=== PATIENT | female | born 1975 | race American Indian/Alaskan Native ===

== ENCOUNTER 2016-10-16 05:08 | Emergency (ER) | payer SELFPAY ==
[2016-10-16 05:53] VITALS: BP 103/65
[2016-10-16 05:54] LABS: Basophils % (Auto) 0.5 % (0.0-1.8); Eosinophils % (Auto) 2.2 % (0.0-4.3); Hematocrit 38.3 % (30.3-42.9); Hemoglobin 12.9 gm/dl (10.1-14.3); Mean Corpuscular HGB Conc 34 % (30-34); Mean Corpuscular Hemoglobin 30 pg (28-32); Mean Corpuscular Volume 88 fl (79-97); Platelet Count 261 K/mm3 (140-440); Red Blood Count 4.35 M/mm3 (3.65-5.03); Red Cell Distribution Width 12.9 % (13.2-15.2); White Blood Count 7.2 K/mm3 (4.5-11.0)
[2016-10-16 06:06] LABS: Anion Gap 18 mmol/L; Blood Urea Nitrogen 14 mg/dL (7-17); Calcium 8.7 mg/dL (8.4-10.2); Carbon Dioxide 23 mmol/L (22-30); Chloride 104.1 mmol/L (98-107); Glucose 111 mg/dL (65-100); Potassium 3.6 mmol/L (3.6-5.0); Sodium 141 mmol/L (137-145)
[2016-10-16 07:48] LABS: Bilirubin,Urine NEG (Negative); Blood,Urine MOD (Negative); Ketones,Urine NEG (Negative); Leukocyte Esterase,Urine NEG (Negative); Nitrite,Urine NEG (Negative); Protein,Urine <15 mg/dL mg/dL (Negative); RBC,Urine < 1.0 /HPF (0.0-6.0); Urobilinogen,Urine < 2.0 mg/dL (<2.0); WBC,Urine < 1.0 /HPF (0.0-6.0)
== END 2016-10-16 06:00 | disposition left against medical advice (07) ==
LOC: ED 05:08
DX: R51 Headache (principal); Z53.21 Procedure and treatment not carried out due to patient leaving prior to being seen by health care provider
CPT/HCPCS: 36415; 80048; 81001; 85025

== ENCOUNTER 2017-01-12 11:45 | Emergency (ER) | payer MEDICAID ==
[2017-01-12] MEDS ORDERED: MOTRIN PO ONE (15:31)
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
[2017-01-12 16:10] VITALS: BP 105/60
== END 2017-01-12 16:08 | disposition home or self-care (01) ==
LOC: ED 11:45
DX: K05.10 Chronic gingivitis, plaque induced (principal)
CPT/HCPCS: 99282

== ENCOUNTER 2017-05-01 03:13 | Emergency (ER) | payer MEDICAID ==
[2017-05-01 03:30] VITALS: BP 109/58
== END 2017-05-01 06:54 | disposition left against medical advice (07) ==
LOC: ED 03:13
DX: O26.892 Other specified pregnancy related conditions, second trimester (principal); R51 Headache; Z53.21 Procedure and treatment not carried out due to patient leaving prior to being seen by health care provider

== ENCOUNTER 2017-11-11 21:10 | Emergency (ER) | payer MEDICAID ==
[2017-11-11 21:28] VITALS: BP 135/69
[2017-11-11 22:59] LABS: Basophils % (Auto) 0.5 % (0.0-1.8); Eosinophils # (Auto) 0.2 K/mm3 (0.0-0.4); Eosinophils % (Auto) 3.1 % (0.0-4.3); Hematocrit 35.2 % (30.3-42.9); Hemoglobin 11.9 gm/dl (10.1-14.3); Lymphocytes # (Auto) 2.9 K/mm3 (1.2-5.4); Lymphocytes % (Auto) 44.8 % (13.4-35.0); Mean Corpuscular HGB Conc 34 % (30-34); Mean Corpuscular Hemoglobin 29 pg (28-32); Mean Corpuscular Volume 87 fl (79-97); Monocytes # (Auto) 0.5 K/mm3 (0.0-0.8); Monocytes % (Auto) 7.3 % (0.0-7.3); Platelet Count 261 K/mm3 (140-440); Red Blood Count 4.06 M/mm3 (3.65-5.03); Red Cell Distribution Width 14.5 % (13.2-15.2)
[2017-11-11 23:10] LABS: Bilirubin,Urine NEG (Negative); Color,Urine Yellow (Yellow); Protein,Urine <15 mg/dL mg/dL (Negative)
[2017-11-11 23:12] LABS: Blood,Urine LG (Negative)
[2017-11-11 23:29] LABS: Alanine Aminotransferase 18 units/L (7-56); Albumin 3.8 g/dL (3.9-5); BUN/Creatinine Ratio 19; Blood Urea Nitrogen 13 mg/dL (7-17); Hemolysis Index 13
== END 2017-11-11 22:30 | disposition left against medical advice (07) ==
LOC: ED 21:10
DX: R10.9 Unspecified abdominal pain (principal); Z53.21 Procedure and treatment not carried out due to patient leaving prior to being seen by health care provider
CPT/HCPCS: 36415; 80053; 81001; 84703; 85025

== ENCOUNTER 2020-05-12 11:10 | Outpatient (CLI) | payer OTHER ==
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
== END 2020-05-12 11:11 | disposition home or self-care (01) ==
LOC: XRAY 11:10
PROVIDERS: ATTEND Internal Medicine
DX: M79.632 Pain in left forearm (principal); M79.651 Pain in right thigh; M79.652 Pain in left thigh

== ENCOUNTER 2020-07-14 09:27 | Outpatient (CLI) | payer OTHER ==
--- NOTE | 2020-07-14 10:46 | XRay Report ---
BILATERAL KNEE 4 VIEW(S) INDICATION / CLINICAL INFORMATION: BILATERAL KNEE PAIN COMPARISON: None available. FINDINGS: BONES / JOINT(S): No acute fracture or subluxation of right or left knee. No significant arthritis. SOFT TISSUES: No significant abnormality. ADDITIONAL FINDINGS: None. Signer Name: Emmanuel Giles MD Signed: 07/14/2020 10:41 AM Workstation Name: [id number]
--- NOTE | 2020-07-14 10:46 | XRay Report ---
LUMBAR SPINE 3 VIEWS INDICATION / CLINICAL INFORMATION: BACK PAIN. COMPARISON: None available. FINDINGS: VERTEBRAE: No fracture. No significant malalignment. DISC SPACES:No significant abnormality. FACET JOINTS:No significant abnormality. ADDITIONAL FINDINGS: Bilateral tubal ligation clips IMPRESSION: 1. No significant abnormality. Signer Name: Emmanuel Giles MD Signed: 07/14/2020 10:42 AM Workstation Name: [email or web address] [id number]
== END 2020-07-14 09:28 | disposition home or self-care (01) ==
LOC: XRAY 09:27
PROVIDERS: ATTEND Internal Medicine
DX: M25.562 Pain in left knee (principal); M25.561 Pain in right knee; M54.5 Low back pain
CPT/HCPCS: 72100

== ENCOUNTER 2020-08-20 01:08 | Emergency (ER) | payer MEDICAID, OTHER ==
[2020-08-20 01:54] LABS: Basophils # (Auto) 0.1 K/mm3 (0.0-0.1); Basophils % (Auto) 0.6 % (0.0-1.8); Eosinophils # (Auto) 0.2 K/mm3 (0.0-0.4); Eosinophils % (Auto) 2.2 % (0.0-4.3); Hematocrit 35.9 % (30.3-42.9); Hemoglobin 12.2 gm/dl (10.1-14.3); Lymphocytes # (Auto) 3.5 K/mm3 (1.2-5.4); Lymphocytes % (Auto) 38.3 % (13.4-35.0); Mean Corpuscular HGB Conc 34 % (30-34); Mean Corpuscular Volume 87 fl (79-97); Monocytes # (Auto) 0.4 K/mm3 (0.0-0.8); Platelet Count 320 K/mm3 (140-440); Red Blood Count 4.14 M/mm3 (3.65-5.03); Red Cell Distribution Width 14.7 % (13.2-15.2)
[2020-08-20 02:02] LABS: Alanine Aminotransferase 16 units/L (7-56); Albumin 4.1 g/dL (3.9-5); Blood Urea Nitrogen 12 mg/dL (7-17); Calcium 8.9 mg/dL (8.4-10.2); Hemolysis Index 12
[2020-08-20 02:04] LABS: BUN/Creatinine Ratio 17
[2020-08-20 03:23] LABS: Bacteria,Urine 1+ /HPF (Negative); Bilirubin,Urine NEG (Negative); Blood,Urine NEG (Negative); Color,Urine Red (Yellow); Mucus,Urine FEW /HPF; Protein,Urine <15 mg/dL mg/dL (Negative); Urobilinogen,Urine < 2.0 mg/dL (<2.0); WBC,Urine < 1.0 /HPF (0.0-6.0)
[2020-08-20 05:06] VITALS: BP 123/62
== END 2020-08-20 04:40 | disposition home or self-care (01) ==
LOC: ED 01:08
DX: D25.9 Leiomyoma of uterus, unspecified (principal); R19.7 Diarrhea, unspecified; R10.30 Lower abdominal pain, unspecified; R11.0 Nausea; Z98.890 Other specified postprocedural states; Z79.1 Long term (current) use of non-steroidal anti-inflammatories (NSAID); Z79.2 Long term (current) use of antibiotics; Z79.899 Other long term (current) drug therapy
CPT/HCPCS: 36415; 74177; 80053; 81001; 83690; 84703; 85025; 99284; Q9967